=== PATIENT | male | born 1995 | race Caucasian/White ===

== ENCOUNTER 2023-11-29 12:21 | Emergency (ER) | payer BC, SELFPAY ==
[2023-11-29 12:22] VITALS: BP 92/76; PULSE 101; RESP 18; TEMP 36.8; O2SAT 98
--- NOTE | 2023-11-29 12:26 | EKG12_ITS ---
Test Reason : CHEST PAIN Blood Pressure : / mmHG Vent. Rate : 091 BPM Atrial Rate : 091 BPM P-R Int : 152 ms QRS Dur : 088 ms QT Int : 330 ms P-R-T Axes : 077 082 054 degrees QTc Int : 405 ms Normal sinus rhythm Normal ECG Confirmed by Tomy Harris ([id number]), newspaper managing editor JENNIFER MORTON ([id number]) on 11/30/2023 9:45:35 AM Referred By: SILVINA/BARRERA Confirmed By:Tomy Harris
[2023-11-29 13:10] VITALS: BMI 21.1
--- NOTE | 2023-11-29 13:49 | EDS_ITS ---
HPI History of Present Illness Chief Complaint: Chest Pain Narrative Narrative: Patient presenting with retrosternal chest pain. He states that he ate a taco salad and after that started to have just comfort in his chest. He was seen at [facility] yesterday and had a cardiac workup with 2 negative heart enzymes. He states he was given a GI cocktail yesterday which did not seem to help. He was discharged home with etodolac and doxycycline. He states he is not sure why he was given the doxycycline. He states he woke up at 3 AM and took both meds on empty stomach. He believes they told him he had something fluffy in his lungs. Patient denies coughing, fever, chills, shortness of breath. Patient has no cardiac history. Denies any lung problems. He states he does not drink except for maybe once a week. No history of pancreatitis. [facility] History no medical history Home Medications ?Medication ?Instructions ?Recorded ?Last Taken ?Type famotidine 20 mg tablet (Pepcid AC) 20 mg PO DAILY PRN epigastric pain 11/29/23 Unknown Rx #20 tabs omeprazole 40 mg capsule,delayed 40 mg PO DAILY #30 caps 11/29/23 Unknown Rx release Allergy/AdvReac Type Severity Reaction Status Date / Time No Known Allergies Allergy Verified 11/29/23 12:22 Social History Smoking Status: Current every day smoker tobacco type: e-cigarettes ROS ROS ED Constitutional Constitutional ED: Denies chills, fever(s) or sweats Eyes Eyes: Denies blurry vision or change in vision ENT ENT ED: Denies ear pain or sore throat Cardiovascular Cardiovascular: Reports chest pain; Denies palpitations or racing heartbeat Respiratory/Chest Respiratory/Chest: Denies cough, dyspnea or sputum Gastrointestinal Gastrointestinal: Reports abdominal pain; Denies constipation, diarrhea, nausea or vomiting Genitourinary Genitourinary ED: Denies dysuria, hematuria or urinary frequency Musculoskeletal Musculoskeletal: Denies arthralgias, myalgias or neck pain Integumentary Denies abscess, Abrasions or rash Neurologic Neurologic: Denies headache(s), paresthesias or weakness Psychiatric Psychiatric: Denies anxiety, depression, suicidal ideation or suicidal thoughts Endocrine Endocrinology: Denies polydipsia or polyuria EXAM Physical Exam Const Vital Signs: 11/29/23 12:22 11/29/23 13:09 11/29/23 14:22 Temperature 98.3 F Temperature Source Temporal Pulse Rate 101 H 80 Respiratory Rate 18 11 L Respiratory Effort Normal Non-Labored Blood Pressure 92/76 116/83 H Blood Pressure Mean 81 94 Pulse Ox 98 98 Oxygen Delivery Method Room Air Room Air Positive well nourished and obese General Appearance ED: NAD; Negative for pallor Nutritional Appearance: obese HEENT Reports moist mucous membranes normocephalic and atraumatic Eyes PERRL and EOMs intact bilaterally Chest Wall inspection of chest normal and palpation of chest normal Resp normal respiratory effort and clear to auscultation bilaterally Auscultation: Negative for rales, rhonchi or wheezes Cardio regular rate GI normal to inspection, nondistended, normoactive bowel sounds and soft to palpation Extremity normal to inspection Neuro oriented x3 and CN's II-XII intact bilaterally Sensorium / Orientation: awake and alert Psych mental status grossly normal Skin no rashes or lesions noted General Skin Exam: Negative for jaundice or pallor MDM MDM MDM Narrative Medical decision making narrative: Patient was presenting with chest pain today. He had a full workup yesterday including 2 negative cardiac enzymes. I was able to log into [employer], and I was able to find pertinent medical records available for review to compare to the patient's current lab/imaging/workup. EKG performed today shows a sinus rhythm at 91 bpm without sign of ischemic change or dysrhythmia on my interpretation. CBC showed leukocytosis of 15.8. Hemoglobin 15.5. CMP showed a bilirubin of 1.6 and his other LFTs were normal. Renal function and electrolytes were normal. GFR was normal. Glucose was 86. Patient stated that GI cocktail did not help and the other day able to give him nitroglycerin here today and he felt much better. His pain is nearly resolved. Lab workup today shows no leukocytosis with a white blood cell count 9.9. Hemoglobin 13.6. Platelets normal at 224. Renal function and electrolytes within normal limits. Total bilirubin today is 2.7. Direct bilirubin is 0.47. lipase is normal. His other LFTs are normal. I did obtain a right upper quadrant ultrasound and this was negative. Patient has no pain, no leukocytosis, negative ultrasound I will give him follow-up as an outpatient. Chest x-ray interpreted by myself shows no acute cardiopulmonary process. Radiologist interprets this and agrees. Return precautions discussed. I recommended that he discontinue the NSAIDs and the doxycycline as he is likely will irritate his stomach. He is discharged home with omeprazole and Pepcid as needed. Impression: 1. Epigastric pain 2. Hyperbilirubinemia 3. Chest pain Lab Data Attestation: I reviewed the patient's lab results. Labs: Laboratory Results - last 24 hr 11/29/23 11/29/23 14:00 14:10 WBC 9.9 RBC 4.54 L Hgb 13.6 Hct 37.5 L MCV 82.6 MCH 30.0 MCHC 36.3 H RDW Std Deviation 35.3 RDW Coeff of Evette 11.9 Plt Count 224 MPV 8.5 Immature Gran % (Auto) 0.400 Neut % (Auto) 80.8 H Lymph % (Auto) 13.5 L Ingham % (Auto) 4.8 Eos % (Auto) 0.2 Baso % (Auto) 0.3 Absolute Neuts (auto) 8.0 H Absolute Lymphs (auto) 1.33 Nucleated RBC % 0 Sodium 137 Potassium 4.0 Chloride 104 Carbon Dioxide 26.0 Anion Gap 7 BUN 12 Creatinine 0.86 Estim Creat Clear Calc 129.98 Est GFR (MDRD) Af Amer 138 Est GFR (MDRD) Non-Af 114 BUN/Creatinine Ratio 14.0 Glucose 88 Calcium 9.1 Total Bilirubin 2.70 H Direct Bilirubin 0.47 H AST 16 ALT 27 Alkaline Phosphatase 79 Total Protein 7.3 Albumin 4.0 Globulin 3.3 Lipase 18 Radiography Diagnostic Testing: Clinical Impression(s) from Imaging Studies Gallbladder Ultrasound 11/29/23 14:40 IMPRESSION: No acute sonographic abnormality is demonstrated in the abdomen. Electronically Signed: Logan Power DO at 15:37 EDT , Chest X-Ray 11/29/23 15:15 IMPRESSION: No radiographic evidence of acute cardiopulmonary disease. Electronically Signed: Logan Power DO at 15:32 EDT , Discharge Plan Triage Chief Complaint: Chest Pain ED Provider: Medhat Nogueira Dx/Rx/DC Orders Clinical Impression: Elevated bilirubin Instructions: ED Chest Pain, Uncertain Cause Prescriptions: New omeprazole 40 mg capsule,delayed release(DR/EC) 40 mg PO DAILY Qty: 30 0RF famotidine [Pepcid AC] 20 mg tablet 20 mg PO DAILY PRN (Reason: epigastric pain) Qty: 20 0RF Primary Care Provider: Care Physician,No Primary Referrals: Brandon Chacon MD [Med Staff - Active Staff] - 3-5 Days Care Physician,No Primary [Primary Care Provider] - Print Language: Maltese Disposition Disposition: Home, Self Care
[2023-11-29 14:19] LABS: Absolute Lymphocyte Count 1.33 X10^3/uL (0.83-4.51); Basophil# 0.03 X10^3/uL; Basophil% 0.3 % (0-1); Eosinophil# 0.02 X10^3/uL; Eosinophils% 0.2 % (0-5); Hematocrit 37.5 % (40-54); Hemoglobin 13.6 g/dL (13.0-16.5); Lymphocyte # 1.33 X10^3/ul (0.83-4.51); Lymphocyte % 13.5 % (19-41); Mean Corp Hgb Conc 36.3 g/dL (32-36); Mean Corpuscular Volume 82.6 fL (80-94); Mean Platelet Vol. 8.5 fl (6.2-12.0); Monocyte# 0.47 X10^3/uL; Monocyte% 4.8 % (0-10); NRBC Flagged by Analyzer 0 % (0-5); Neutrophil # 7.99 X10^3/uL (2.7-7.7); Neutrophil % 80.8 % (47-70); Platelet Count 224 K/mm3 (150-450); RBC Distribution Width CV 11.9 % (11.6-14.6); RBC Distribution Width SD 35.3 fl (35.1-43.9); Red Blood Count 4.54 M/mm3 (4.6-6.2); White Blood Count 9.9 K/mm3 (4.4-11.0)
[2023-11-29 14:22] VITALS: BP 116/83; PULSE 80; RESP 11; O2SAT 98
[2023-11-29 14:35] LABS: AST(SGOT) 16 U/L (15-37); Alanine Aminotransfer ALT/SGPT 27 U/L (16-61); Alkaline Phosphatase 79 U/L (45-117); Anion Gap 7 (5-15); BUN 12 mg/dL (7-18); Bilirubin, Direct 0.47 mg/dL (0.00-0.30); Calcium,Total 9.1 mg/dL (8.5-10.1); Chloride 104 mmol/L (98-107); Creatinine, Serum 0.86 mg/dL (0.70-1.30); EST Glomerular Filtration Rate 114 mL/min (>60); Est Glom Filt Rate - Afr Amer 138 mL/min (>60); Estimated Creatinine Clearance 129.98 ml/min; Globulin 3.3 g/dL (2.2-4.2); Glucose 88 mg/dL (74-106); Lipase 18 U/L (13-75); Protein, Total 7.3 g/dL (6.4-8.2); Sodium Level 137 mmol/L (136-145)
--- NOTE | 2023-11-29 14:40 | US_ITS ---
INDICATION: ruq pain EXAMINATION: Ultrasound US Abdomen RUQ (limited) TECHNIQUE: Granados-scale and color Doppler imaging was performed of the abdomen. COMPARISON: FINDINGS: LIVER: There is normal echotexture measuring 15.1 cm. No focal hepatic lesion. No intrahepatic biliary ductal dilatation. There is no free fluid. GALLBLADDER AND BILIARY TREE: No shadowing gallstone, pericholecystic fluid or gallbladder wall thickening is demonstrated. The proximal common bile duct measures 3.7 mm, which is within normal limits for the patient''s age. SONOGRAPHIC SALES''S SIGN: Negative. PANCREAS: Limited visualization of the pancreas. No pancreatic ductal dilatation. RIGHT KIDNEY: 9.4 x 5.5 x 3.4 cm. The cortex is 11 mm. There is no hydronephrosis. No shadowing calculus, focal lesion, or perinephric collection is demonstrated. VESSELS: Submitted longitudinal images of the intra-abdominal aorta demonstrate no gross abnormalities and are unremarkable. The IVC is patent. US/Gallbladder IMPRESSION: No acute sonographic abnormality is demonstrated in the abdomen. Electronically Signed: Logan Power DO at 15:37 EDT ,
[2023-11-29] MEDS: Famotidine 200 MG/20 ML MDV 20 MG in 0.9% Normal Saline (Pres. free 8 ML 300 MG IV (14:42)
[2023-11-29] MEDS: Nitroglycerin SL (ED/IMG/CATH) 0.4 MG TABLET SL (15:00)
--- NOTE | 2023-11-29 15:10 | ED.RN ---
ONE NITRO GIVEN, UNABLE TO DOCUMENT
--- NOTE | 2023-11-29 15:15 | RAD_ITS ---
INDICATION: chest pain EXAMINATION/TECHNIQUE: X-RAY - XR Chest 2 Views COMPARISON: FINDINGS: LINES/DEVICES: None. LUNGS: No consolidation, edema or effusion. No pneumothorax. MEDIASTINUM AND CARDIOVASCULAR STRUCTURES: Cardiac silhouette not enlarged. Central airways and mediastinal contour are unremarkable. BONES AND SOFT TISSUES: Unremarkable. RAD/Chest PA and Lateral IMPRESSION: No radiographic evidence of acute cardiopulmonary disease. Electronically Signed: Logan Power DO at 15:32 EDT ,
[2023-11-29 15:48] VITALS: BP 108/61; PULSE 75; RESP 18; TEMP 36.6; O2SAT 98
== END 2023-11-29 15:54 | disposition home or self-care (01) ==
PROVIDERS: Emergency Provider Student in an Organized Health Care Education/Training Program; Visit Provider Student in an Organized Health Care Education/Training Program
DX: R10.13 Epigastric pain (principal); R07.9 Chest pain, unspecified; E80.6 Other disorders of bilirubin metabolism; F17.290 Nicotine dependence, other tobacco product, uncomplicated
CPT/HCPCS: 71046; 76705; 80048; 80076; 83690; 85025; 93005; 96365; 99283; A4216; J3490